=== PATIENT | male | born 1975 | race Caucasian/White ===

== ENCOUNTER 2020-12-08 16:05 | Emergency (ER) | payer SELFPAY ==
[~2020-12-08] VITALS: Ht 170.2 cm; Wt 72.7 kg
[~2020-12-08 16:05] MED LIST: ACETAMINOPHEN W1 TA6 PO; FLEXERIL5 MG PO; HYDROCODONE/APAP; LORTAB 5/500 501 TAB PO; NO HOME MEDICATIONS; PERCOCET 325 MG1 TA2 PO; PERCOCET 5/321 UDTAB PO; PREDNISONE20 MG PO; ZITHROMAX 250M250 MG PO
[2020-12-08] MEDS ORDERED: OMNICEF 300MG300 MG PO (18:31)
[2020-12-08] MEDS ORDERED: FLAGYL500 MG PO (18:31)
[2020-12-08] MEDS ORDERED: NORCO 325 MG-51 TAB PO (18:32)
[2020-12-08 19:55] VITALS: BP 138/65; PULSE 78; TEMP 98.4
== END 2020-12-08 19:56 | disposition home or self-care (01) ==
LOC: COL.ER 16:05
DX: K11.21 Acute sialoadenitis (principal); F17.210 Nicotine dependence, cigarettes, uncomplicated
CPT/HCPCS: J0696; J1885

== ENCOUNTER 2020-12-09 01:40 | Emergency (ER) | payer SELFPAY ==
[~2020-12-09] VITALS: Ht 170.2 cm; Wt 72.7 kg
[~2020-12-09 01:40] MED LIST changes: +FLAGYL500 MG PO; +NORCO 325 MG-51 TAB PO; +OMNICEF 300MG300 MG PO
[2020-12-09 02:41] LABS: BASO # 0.1 (0.0-0.2); BASO % 0.5 % (0.0-2.0); EOS # 0.3 (0.0-0.7); GRAN # 7.1 (1.4-6.5); GRAN % 68.1 % (42.2-75.2); HEMATOCRIT 44.7 % (42.0-52.0); HEMOGLOBIN 14.4 g/dl (13.5-18.0); MEAN CELL VOLUME 94 fl (80.0-100.0); MEAN CORPUSCULAR HEMOGLOBIN 30 pg (27.0-31.0); MEAN CORPUSCULAR HGB CONC 32 g/dl (33.0-37.0); MEAN PLATELET VOLUME 9.2 fl (7.4-10.4); MONO # 0.9 (0.1-0.6); MONO % 8.8 % (1.7-9.3); RED BLOOD COUNT 4.74 M/mm3 (4.20-5.60); REDCELL DISTRIBUTION WIDTH-CV 12.6 % (11.5-14.5)
[2020-12-09 02:49] LABS: ALBUMIN 3.9 gm/dL (3.5-5.0); BILIRUBIN,TOTAL 0.4 mg/dL (0.0-1.0); C-REACTIVE PROTEIN 0.9 mg/dL (0.0-0.9); CREATININE, serum 0.74 (0.66-1.25); POTASSIUM 3.7 mmol/L (3.4-5.0); TOTAL PROTEIN 7.2 gm/dL (6.4-8.2)
[2020-12-09 02:52] LABS: PLATELET COUNT 233 K/mm3 (130-400)
[2020-12-09 05:21] VITALS: BP 121/64; PULSE 78; TEMP 98.8
== END 2020-12-09 05:23 | disposition home or self-care (01) ==
LOC: COL.ER 01:40
PROVIDERS: Emergency Medicine
DX: R22.0 Localized swelling, mass and lump, head (principal)
CPT/HCPCS: J2270; J3010; J7030; Q9967

== ENCOUNTER 2021-09-12 03:24 | Emergency (ER) | payer SELFPAY ==
[~2021-09-12] VITALS: Ht 170.2 cm; Wt 70.5 kg
[2021-09-12 03:26] VITALS: TEMP 98.5
[2021-09-12 05:07] LABS: BASO # 0.1 K/mm3 (0.0-0.2); BASO % 0.6 % (0.0-2.0); EOS # 0.2 K/mm3 (0.0-0.7); EOS % 2.2 % (0.0-4.0); GRAN # 8.1 K/mm3 (1.4-6.5); GRAN % 73.2 % (42.2-75.2); HEMATOCRIT 41.4 % (42.0-52.0); HEMOGLOBIN 13.8 g/dl (13.5-18.0); LYMPH # 1.7 K/mm3 (1.2-3.4); LYMPH % 15.8 % (20.0-51.0); MEAN CELL VOLUME 92 fl (80.0-100.0); MEAN CORPUSCULAR HEMOGLOBIN 31 pg (27-31); MEAN CORPUSCULAR HGB CONC 33 g/dl (33.0-37.0); MEAN PLATELET VOLUME 8.8 fl (7.4-10.4); MONO # 0.9 K/mm3 (0.1-0.6); MONO % 7.8 % (1.7-9.3); PLATELET COUNT 265 K/mm3 (130-400); RED BLOOD COUNT 4.52 M/mm3 (4.20-5.60); REDCELL DISTRIBUTION WIDTH-CV 12.5 % (11.5-14.5)
[2021-09-12 05:13] LABS: PROTHROMBIN TIME 11.6 SECONDS (9.7-12.8)
[2021-09-12 05:16] LABS: PARTIAL THROMBOPLASTIN TIME 29.2 SECONDS (26.0-37.0)
[2021-09-12 05:30] LABS: ALANINE AMINOTRANSFERASE 16 U/L (0-55); ALKALINE PHOSPHATASE 71 U/L (40-150); ANION GAP 9 mmol/L (7-16); AST,SGOT 16 U/L (5-34); BLOOD UREA NITROGEN 18 mg/dL (9-21); CALCIUM 8.7 mg/dL (8.4-10.2); CARBON DIOXIDE 26 mmol/L (22-29); CHLORIDE 105 mmol/L (98-107); GLUCOSE 133 mg/dL (70-99); POTASSIUM 4.2 mmol/L (3.5-4.5); SODIUM 140 mmol/L (136-145)
[2021-09-12 05:31] LABS: ALCOHOL(ethanol),MEDICAL < 10 mg/dL (0-10)
[2021-09-12 05:43] LABS: BILIRUBIN,TOTAL 0.3 mg/dL (0.2-1.2)
[2021-09-12 06:00] VITALS: BP 128/76; PULSE 64
== END 2021-09-12 06:00 | disposition short-term general hospital (02) ==
LOC: COL.ER 03:24
PROVIDERS: Emergency Medicine
DX: S02.0XXA Fracture of vault of skull, initial encounter for closed fracture (principal); S06.300A Unspecified focal traumatic brain injury without loss of consciousness, initial encounter; S02.40EA Zygomatic fracture, right side, initial encounter for closed fracture; S02.8 Fractures of other specified skull and facial bones; F17.200 Nicotine dependence, unspecified, uncomplicated; Z28.310 Unvaccinated for COVID-19; W22.8XXA Striking against or struck by other objects, initial encounter; Y92.009 Unspecified place in unspecified non-institutional (private) residence as the place of occurrence of the external cause
CPT/HCPCS: J1953; J3010; J7030

== ENCOUNTER 2022-02-28 01:31 | Emergency (ER) | payer SELFPAY ==
[~2022-02-28] VITALS: Ht 170.2 cm; Wt 72.7 kg
[2022-02-28 01:34] VITALS: TEMP 99.2
[2022-02-28] MEDS ORDERED: FLEXERIL 1010 MG/TAB PO (02:31)
[2022-02-28 02:34] VITALS: BP 117/81; PULSE 84
== END 2022-02-28 02:35 | disposition home or self-care (01) ==
LOC: COL.ER 01:31
DX: B34.9 Viral infection, unspecified (principal); R50.9 Fever, unspecified; M79.18 Myalgia, other site; F17.210 Nicotine dependence, cigarettes, uncomplicated; Z28.310 Unvaccinated for COVID-19; Z20.822 Contact with and (suspected) exposure to COVID-19; V19.9XXA Pedal cyclist (driver) (passenger) injured in unspecified traffic accident, initial encounter; Y92.410 Unspecified street and highway as the place of occurrence of the external cause